=== PATIENT | male | born 1960 | race Caucasian/White ===

== ENCOUNTER 2021-06-06 11:26 | Inpatient (IN) | payer OTHER ==
[~2021-06-06] VITALS: Ht 170.2 cm; Wt 121.1 kg
[2021-06-06] MEDS ORDERED: FUROSEMIDE 20 MG/2 ML VIAL IVP ONE (11:45)
[2021-06-06 11:59] LABS: HEMATOCRIT 28.4 % (36.7-47.1); MEAN CORPUSCULAR HEMOGLOBIN 29.8 uug (23.8-33.4); MEAN CORPUSCULAR VOLUME 91.8 fL (73.0-96.2); PLATELET COUNT (AUTO) 178 K/uL (152-348)
[2021-06-06] MEDS ORDERED: FUROSEMIDE 20 MG/2 ML VIAL ONE (12:05)
[2021-06-06 12:11] LABS: CARBON DIOXIDE 32 mmol/L (21-32); CHLORIDE 100 mmol/L (98-107); CREATININE 0.7 mg/dL (0.6-1.3); GLUCOSE 228 mg/dL (74-106); POTASSIUM 4.3 mmol/L (3.5-5.1); UREA NITROGEN, BLOOD 12 mg/dL (7-18)
[2021-06-06 12:29] LABS: ALANINE AMINOTRANSFERASE 18 U/L (16-63); ALKALINE PHOSPHATASE 171 U/L (50-136); ASPARTATE AMINOTRANSFERASE 22 U/L (15-37); BILIRUBIN,DIRECT 0.1 mg/dL (0.0-0.2); BILIRUBIN,TOTAL 0.3 mg/dL (0.2-1.0); TOTAL PROTEIN, SERUM 6.7 g/dL (6.4-8.2)
[2021-06-06] MEDS ORDERED: ACET-73 PO (13:29)
[2021-06-06] MEDS ORDERED: ASPI81TA31 PO (13:29)
[2021-06-06] MEDS ORDERED: OXYC-128 PO (13:33)
[2021-06-06] MEDS ORDERED: DOCU100C36 PO (13:33)
[2021-06-06] MEDS ORDERED: LISI10TA29 PO (13:33)
[2021-06-06] MEDS ORDERED: LINA5TAB PO (13:33)
[2021-06-06] MEDS ORDERED: METF-442 PO (13:33)
[2021-06-06] MEDS ORDERED: ATOR40TA PO (13:33)
[2021-06-06] MEDS ORDERED: SENN-18 PO (13:33)
[2021-06-06] MEDS ORDERED: CARV12.52 PO (13:33)
[2021-06-06] MEDS ORDERED: DAPA10TA PO (13:33)
--- NOTE | 2021-06-06 14:52 | NUR ---
Telephone report given to rn. Madeline barker. taken up to room 318 in stable condition HR of 70 sbp of 125/63 saturation of 95% on 4Lnc.
--- NOTE | 2021-06-06 15:13 | NUR ---
61 YEAR OLD MALE RECEIVED TO ROOM 318 FOR CHF .PT IS AXOX4 .VS ARE STABLE CALL LIGHT WITH IN REACH MD NOTIFIED FOR ADMISSION ORDERS
[2021-06-06 15:30] VITALS: BP 123/53
[2021-06-06] MEDS ORDERED: ONDANSETRON 4 MG/2 ML VIAL IV PRN (20:00)
[2021-06-06] MEDS ORDERED: MORPHINE SULFATE 2 MG/1 ML DISP.SYRIN IV PRN (20:00)
[2021-06-06] MEDS ORDERED: DEXTROSE 50% 50 ML DISP.SYRIN IV PRN (20:00)
[2021-06-06 20:05] VITALS: BP 171/78
[2021-06-06] MEDS: METFORMIN HCL 500 MG TABLET PO SCH (21:00)
[2021-06-06] MEDS ORDERED: ENALAPRILAT DIHYDRATE 1.25 MG/1 ML VIAL IV PRN (21:15)
[2021-06-06] MEDS: ATORVASTATIN 40 MG TABLET PO SCH (21:49)
[2021-06-06] MEDS: DOCUSATE SODIUM 100 MG CAPSULE PO SCH (21:49)
[2021-06-06] MEDS: LISINOPRIL 5 MG TABLET PO SCH (21:49)
[2021-06-06] MEDS: BLOOD SUGAR DIAGNOSTIC 1 EACH STRIP VI SCH (21:50)
[2021-06-06] MEDS: CARVEDILOL 6.25 MG TABLET PO SCH (21:50)
[2021-06-06] MEDS: INSULIN REGULAR, HUMAN 300 UNIT/3 ML VIAL SQ PRN (21:59)
--- NOTE | 2021-06-06 22:06 | NUR ---
NEW ORDER, METFORMIN NOT GIVEN, PT WILL TAKE IN Am with meals
[2021-06-07 00:38] VITALS: BP 124/63
[2021-06-07 04:00] VITALS: BP 128/67
[2021-06-07] MEDS: BLOOD SUGAR DIAGNOSTIC 1 EACH STRIP VI SCH ×4 (06:48→20:30)
[2021-06-07] MEDS: PANTOPRAZOLE SODIUM 40 MG TABLET.DR PO SCH (06:48)
--- NOTE | 2021-06-07 06:49 | NUR ---
Pt rested well in between care; needs attended; pt stated he wants to go home today; continue to monitor; continue plan of care.
[2021-06-07 07:18] LABS: HEMATOCRIT 28.4 % (36.7-47.1); MEAN CORPUSCULAR HEMOGLOBIN 30.5 uug (23.8-33.4); MEAN CORPUSCULAR VOLUME 91.5 fL (73.0-96.2); PLATELET COUNT (AUTO) 184 K/uL (152-348)
[2021-06-07 07:22] LABS: IRON, SERUM 40 ug/dL (50-175)
[2021-06-07 07:26] LABS: ALANINE AMINOTRANSFERASE 18 U/L (16-63); ALKALINE PHOSPHATASE 159 U/L (50-136); ASPARTATE AMINOTRANSFERASE 26 U/L (15-37); BILIRUBIN,TOTAL 0.3 mg/dL (0.2-1.0); CHLORIDE 102 mmol/L (98-107); CHOLESTEROL 108 mg/dL (<200); CREATININE 0.6 mg/dL (0.6-1.3); GLUCOSE 116 mg/dL (74-106); HDL CHOLESTEROL 46 mg/dL (40-60); MAGNESIUM 1.6 mg/dL (1.8-2.4); PHOSPHOROUS 4.9 mg/dL (2.5-4.9); POTASSIUM 4.9 mmol/L (3.5-5.1); TOTAL PROTEIN, SERUM 6.9 g/dL (6.4-8.2); TRIGLYCERIDES 56 MG/DL (30-150); UREA NITROGEN, BLOOD 10 mg/dL (7-18)
[2021-06-07 07:29] LABS: CARBON DIOXIDE 40 mmol/L (21-32)
[2021-06-07 07:54] LABS: THYROID STIMULATING HORMONE 2.915 mIU/mL (0.358-3.740)
[2021-06-07] MEDS ORDERED: CARVEDILOL 3.125 MG TABLET PO SCH (08:00)
--- NOTE | 2021-06-07 08:00 | NUR ---
AWAKE ALERT AND VERBALLY RESPONSIVE, ORIENTED X3, SLIGHT SOB ON EXERTION, RA SATS 91-93%. AWAITING MD FOR FURTHER FOLLOW-UP
[2021-06-07] MEDS: LINAGLIPTIN 5 MG TABLET PO SCH (08:18)
[2021-06-07] MEDS: DOCUSATE SODIUM 100 MG CAPSULE PO SCH ×2 (08:21→20:15)
[2021-06-07] MEDS: METFORMIN HCL 500 MG TABLET PO SCH ×2 (08:21→16:58)
[2021-06-07] MEDS: ASPIRIN 81 MG TAB.CHEW PO SCH (08:21)
[2021-06-07] MEDS: LISINOPRIL 5 MG TABLET PO SCH ×2 (08:22→20:15)
[2021-06-07] MEDS: CARVEDILOL 6.25 MG TABLET PO SCH ×2 (08:23→20:15)
[2021-06-07] MEDS ORDERED: FUROSEMIDE 40 MG/4 ML VIAL IV SCH (09:00)
[2021-06-07] MEDS ORDERED: MAGNESIUM OXIDE 400 MG TABLET PO ONE (09:15)
--- NOTE | 2021-06-07 11:30 | NUR ---
SEEN BY DR ARELLANO FOR CONSULT WITH NEW ORDERS. SEE NOTES
[2021-06-07] MEDS: ACETAzolamide 250 MG TABLET PO SCH ×2 (11:44→20:23)
[2021-06-07] MEDS: INSULIN REGULAR, HUMAN 300 UNIT/3 ML VIAL SQ PRN ×2 (11:55→20:31)
[2021-06-07 12:01] VITALS: BP 100/57
--- NOTE | 2021-06-07 15:41 | NUR ---
PATIENT CONTINUE TO TOLERATE RA SATURATING 93-95%, SR WITH PVC'S, DENIES CHEST PAIN. CONTINUE PLAN OF CARE
[2021-06-07 16:42] VITALS: BP 153/78
[2021-06-07] MEDS: FUROSEMIDE 40 MG/4 ML VIAL IV SCH (16:58)
[2021-06-07] MEDS: ATORVASTATIN 40 MG TABLET PO SCH (20:15)
[2021-06-07 20:35] VITALS: BP 150/76
[2021-06-08 01:19] VITALS: BP_SYST 116; BP_SYST 121; BP_DIAS 57; BP_DIAS 60
[2021-06-08 05:22] VITALS: BP 116/52
[2021-06-08] MEDS: PANTOPRAZOLE SODIUM 40 MG TABLET.DR PO SCH (06:28)
[2021-06-08] MEDS: BLOOD SUGAR DIAGNOSTIC 1 EACH STRIP VI SCH ×4 (06:42→20:19)
--- NOTE | 2021-06-08 06:43 | NUR ---
Pt slept throughout the night. Denies any SOB at this time. Pt is able to make needs known. IV site intact. Safety precautions in place. Will endorse to day shift.
[2021-06-08 06:44] LABS: HEMATOCRIT 30.2 % (36.7-47.1); MEAN CORPUSCULAR HEMOGLOBIN 30.4 uug (23.8-33.4); MEAN CORPUSCULAR VOLUME 91.6 fL (73.0-96.2); PLATELET COUNT (AUTO) 216 K/uL (152-348)
[2021-06-08 07:19] LABS: CREATININE 0.7 mg/dL (0.6-1.3); MAGNESIUM 1.6 mg/dL (1.8-2.4); PHOSPHOROUS 4.5 mg/dL (2.5-4.9); POTASSIUM 4.2 mmol/L (3.5-5.1)
[2021-06-08] MEDS: METFORMIN HCL 500 MG TABLET PO SCH ×2 (08:15→16:41)
[2021-06-08] MEDS: MAGNESIUM SULFATE/D5W 100 ML IV SCH ×2 (08:15→09:18)
[2021-06-08] MEDS: DOCUSATE SODIUM 100 MG CAPSULE PO SCH ×2 (08:15→20:12)
[2021-06-08] MEDS: FUROSEMIDE 40 MG/4 ML VIAL IV SCH ×2 (08:15→16:06)
[2021-06-08] MEDS: ASPIRIN 81 MG TAB.CHEW PO SCH (08:16)
[2021-06-08] MEDS: LISINOPRIL 5 MG TABLET PO SCH ×2 (08:16→20:12)
[2021-06-08] MEDS: CARVEDILOL 6.25 MG TABLET PO SCH ×2 (08:16→20:13)
[2021-06-08] MEDS: ACETAzolamide 250 MG TABLET PO SCH ×2 (08:16→20:12)
[2021-06-08] MEDS: LINAGLIPTIN 5 MG TABLET PO SCH (08:16)
[2021-06-08] MEDS ORDERED: MAGNESIUM OXIDE 400 MG TABLET PO ONE (08:30)
[2021-06-08] MEDS ORDERED: FARXIGA 10 MG PO SCH (09:00)
[2021-06-08] MEDS ORDERED: [UNRECOGNIZED DRUG - OTHER] PO SCH (09:00)
--- NOTE | 2021-06-08 10:15 | NUR ---
WOUND CARE CONSULT: PT PRESENTS WITH HEALED CABG INCISION AND HEALED AREAS TO RT LOWER LEG WITH DRESSING TO RT FOOT WITH SOME STRIKETHROUGH PINK/HAYNES DRAINAGE, PRESENT ON ADMISSION. PT IS HESITANT TO HAVE DRESSING REMOVED WITHOUT SPEAKING TO HIS SURGEON, DR SWANN ([phone]). INFORMATION GIVEN TO DR ASHBY WITH PODIATRY CONSULT. PT IS CONTINENT AND INDEPENDENT WITH BED MOBILITY, ALTHOUGH HE IS HESITANT TO MOVE MUCH FOR CONCERN OF PAIN. DISCUSSED SKIN PROTECTION WITH NURSING STAFF. MD IN AGREEMENT WITH PLAN OF CARE.
[2021-06-08] MEDS: ACETAMINOPHEN 325 MG TABLET PO PRN ×2 (10:21→16:06)
[2021-06-08 10:53] VITALS: BP 108/59
[2021-06-08] MEDS: INSULIN REGULAR, HUMAN 300 UNIT/3 ML VIAL SQ PRN ×2 (11:38→20:21)
[2021-06-08 15:56] VITALS: BP 152/80
--- NOTE | 2021-06-08 19:40 | NUR ---
Patient resting in bed with family by bedside. AO X 4. SR on rehabilitation services aide at 80-82 bpm. Denies any chest pain. No signs of acute distress. IV in R wrist, intact and saline flushed. Call lights within reach. Safety measures initiated.
[2021-06-08 20:00] VITALS: BP 152/66
[2021-06-08] MEDS: ATORVASTATIN 40 MG TABLET PO SCH (20:13)
[2021-06-09] VITALS (7 sets, daily range): BP systolic 96–155; BP diastolic 50–86
--- NOTE | 2021-06-09 05:27 | NUR ---
Patient slept throughout the night. On room air saturating at 93%. Compliant with medication and care. Strict I & O. Wound treatment done on R foot as needed. Betadine to incision, cover with xeroform and apply betadine, saturated guaze and Kerlix. No signs of acute distress noted. Denies any pain and discomfort. Urinal and call lights within reach. Safety measures maintained. Will endorse to am shift.
--- NOTE | 2021-06-09 05:30 | NUR ---
Small amount of yellowish pus like drainage noted on R foot wound.
[2021-06-09] MEDS: PANTOPRAZOLE SODIUM 40 MG TABLET.DR PO SCH (06:00)
[2021-06-09] MEDS: BLOOD SUGAR DIAGNOSTIC 1 EACH STRIP VI SCH (08:03)
[2021-06-09] MEDS: INSULIN REGULAR, HUMAN 300 UNIT/3 ML VIAL SQ PRN (08:09)
[2021-06-09] MEDS: DOCUSATE SODIUM 100 MG CAPSULE PO SCH ×2 (08:10→20:22)
[2021-06-09] MEDS: METFORMIN HCL 500 MG TABLET PO SCH ×2 (08:10→17:19)
[2021-06-09] MEDS: ASPIRIN 81 MG TAB.CHEW PO SCH (08:10)
[2021-06-09] MEDS: LINAGLIPTIN 5 MG TABLET PO SCH (08:10)
[2021-06-09] MEDS: FUROSEMIDE 40 MG/4 ML VIAL IV SCH ×2 (08:23→17:19)
--- NOTE | 2021-06-09 08:23 | NUR ---
Diamox 500mg given.
--- NOTE | 2021-06-09 08:23 | NUR ---
Per Dr. Foley, OK to give Lasix and diamox, but to hold Lisinopril. Carvedilol ok to give for SBP > 100, however, dose was held because of blood pressure of 96/51.
[2021-06-09 08:30] LABS: HEMATOCRIT 31.3 % (36.7-47.1); MEAN CORPUSCULAR HEMOGLOBIN 29.9 uug (23.8-33.4); MEAN CORPUSCULAR VOLUME 91.9 fL (73.0-96.2); PLATELET COUNT (AUTO) 230 K/uL (152-348)
[2021-06-09 08:38] LABS: CREATININE 0.7 mg/dL (0.6-1.3); MAGNESIUM 2.2 mg/dL (1.8-2.4); POTASSIUM 4.8 mmol/L (3.5-5.1)
[2021-06-09] MEDS: CARVEDILOL 6.25 MG TABLET PO SCH ×2 (09:00→20:23)
[2021-06-09] MEDS: LISINOPRIL 5 MG TABLET PO SCH ×2 (09:00→20:22)
--- NOTE | 2021-06-09 18:27 | NUR ---
Patient slept intermittently throughout the day. AO x 4. Sinus rhythm on the monitor with heart rate in the 80s. On RA saturating 96%. Had one bowel movement this shift. Wound care of the right foot rendered. Will endorse to oncoming shift.
--- NOTE | 2021-06-09 19:00 | NUR ---
Patient is awake, alert, A/Ox4. Denies pain at this time. No signs of acute distress noted. IV site intact and patent. No erythema, bleeding or infiltration noted. Able to make needs known with assistance. Bed at lowest position, brakes on, siderails x2. at bedside. Will continue to monitor.
[2021-06-09] MEDS: ATORVASTATIN 40 MG TABLET PO SCH (20:22)
[2021-06-09] MEDS: ACETAzolamide 250 MG TABLET PO SCH (20:25)
[2021-06-10 00:33] VITALS: BP 114/61
--- NOTE | 2021-06-10 02:00 | NUR ---
Resting comfortably. No significant change of condition noted. Will continue to monitor.
[2021-06-10 04:00] VITALS: BP 112/56
[2021-06-10] MEDS: PANTOPRAZOLE SODIUM 40 MG TABLET.DR PO SCH (06:13)
[2021-06-10 08:00] VITALS: BP 133/76
[2021-06-10] MEDS: METFORMIN HCL 500 MG TABLET PO SCH ×2 (08:58→17:11)
[2021-06-10] MEDS: DOCUSATE SODIUM 100 MG CAPSULE PO SCH (08:59)
[2021-06-10] MEDS: LINAGLIPTIN 5 MG TABLET PO SCH (08:59)
[2021-06-10] MEDS: ASPIRIN 81 MG TAB.CHEW PO SCH (08:59)
[2021-06-10] MEDS: FUROSEMIDE 40 MG/4 ML VIAL IV SCH ×2 (08:59→17:11)
[2021-06-10] MEDS: ACETAzolamide 250 MG TABLET PO SCH (09:00)
[2021-06-10] MEDS: LISINOPRIL 5 MG TABLET PO SCH (09:01)
[2021-06-10] MEDS: CARVEDILOL 6.25 MG TABLET PO SCH (09:02)
[2021-06-10 11:23] VITALS: BP 135/90
[2021-06-10 15:20] VITALS: BP 142/69
--- NOTE | 2021-06-10 16:21 | NUR ---
Plan is to discharge pt home. Pt will be going via ambulance transport. It has already been arranged by case fitter to have [facility] ambulance at will call for pt. Wound dressing has been changed and educated pt how to care for at home until follow up with his PCP and/or surgeon. assistant community manager also ordered a front wheel walker to be delivered to pt's home per pt request. Pt is ambulatory with assistive devices. Comfort measures provided, all light within reach. Will continue to monitor pt.
[2021-06-10] MEDS ORDERED: FURO-151 PO (17:27)
[2021-06-10] MEDS ORDERED: ACET250T9 PO (17:27)
[2021-06-10] MEDS ORDERED: PANT40TA49 PO (17:27)
[2021-06-10] MEDS ORDERED: CARV6.252 PO (17:27)
[2021-06-10] MEDS ORDERED: DOCU-141 PO (17:27)
--- NOTE | 2021-06-10 18:41 | NUR ---
Pt has been discharged home. [facility] ambulance taking pt home and helping up the stairs per pt request. at bedside, explained all discharge instructions and medication schedules to both pt and . Pt has an appointment set with his surgeon on Saturday. He is to follow up with his PCP within one week. BP 125/69 at time of discharge. IV removed, ID band removed. No complaint of SOB or pain at this time. All personal belongings at hand.
== END 2021-06-10 18:40 | disposition home health service (06) | DRG 291 ==
LOC: ER 11:26 → MEDSURG3 14:14 → TELE3 14:55 → MEDSURG3 06-10 12:00
PROVIDERS: ADMIT Internal Medicine; ATTEND Internal Medicine
DX: I11.0 Hypertensive heart disease with heart failure (principal); I50.21 Acute systolic (congestive) heart failure; Z68.41 Body mass index [BMI] 40.0-44.9, adult; E44.0 Moderate protein-calorie malnutrition; D68.69 Other thrombophilia; I31.3 Pericardial effusion (noninflammatory); T81.31XA Disruption of external operation (surgical) wound, not elsewhere classified, initial encounter; I25.10 Atherosclerotic heart disease of native coronary artery without angina pectoris; Z95.1 Presence of aortocoronary bypass graft; E11.51 Type 2 diabetes mellitus with diabetic peripheral angiopathy without gangrene; E66.01 Morbid (severe) obesity due to excess calories; D64.9 Anemia, unspecified; E11.42 Type 2 diabetes mellitus with diabetic polyneuropathy; E11.621 Type 2 diabetes mellitus with foot ulcer; E78.5 Hyperlipidemia, unspecified; E88.09 Other disorders of plasma-protein metabolism, not elsewhere classified; K59.00 Constipation, unspecified; Z20.822 Contact with and (suspected) exposure to COVID-19; Z89.421 Acquired absence of other right toe(s); M19.90 Unspecified osteoarthritis, unspecified site; Z79.84 Long term (current) use of oral hypoglycemic drugs; Z79.4 Long term (current) use of insulin; L97.519 Non-pressure chronic ulcer of other part of right foot with unspecified severity; X58.XXXA Exposure to other specified factors, initial encounter; Y93.9 Activity, unspecified; Y92.009 Unspecified place in unspecified non-institutional (private) residence as the place of occurrence of the external cause
CPT/HCPCS: 36415; 71045; 73630; 83550; 83735; 84100; 84443; 84484; 85025; 85610; 93005; 93307; A4663; G0378; J1815; J1940; J3475; J7050; J8499